=== PATIENT | female | born 1985 | race Two or more races ===

== ENCOUNTER 2022-04-11 11:30 | Inpatient (IN) | payer OTHER ==
[~2022-04-11] VITALS: Ht 165.1 cm; Wt 105.2 kg
[2022-04-16] MEDS ORDERED: VITAMIN D31250 MCG (13:17)
[2022-04-16] MEDS ORDERED: FERROUS SULFAT325 MG (13:17)
== END 2022-04-18 10:47 | disposition home or self-care (01) | DRG 743 ==
LOC: OB/GYN 04-16 07:00 → O/R 04-16 07:26 → OB/GYN 04-16 11:30
PROVIDERS: ADMIT Obstetrics & Gynecology; ATTEND Obstetrics & Gynecology
PROC: 0UT70ZZ Resection of Bilateral Fallopian Tubes, Open Approach (ICD-10-PCS; 2022-04-16)
PROC: 0DNW0ZZ Release Peritoneum, Open Approach (ICD-10-PCS; 2022-04-16)
PROC: 0DNU0ZZ Release Omentum, Open Approach (ICD-10-PCS; 2022-04-16)
PROC: 0TNB0ZZ Release Bladder, Open Approach (ICD-10-PCS; 2022-04-16)
PROC: 0UN90ZZ Release Uterus, Open Approach (ICD-10-PCS; 2022-04-16)
PROC: 0UT90ZZ Resection of Uterus, Open Approach (ICD-10-PCS; principal; 2022-04-16 07:00)
DX: D25.1 Intramural leiomyoma of uterus (principal); D25.0 Submucous leiomyoma of uterus; D25.2 Subserosal leiomyoma of uterus; Z20.822 Contact with and (suspected) exposure to COVID-19; N73.6 Female pelvic peritoneal adhesions (postinfective)